=== PATIENT | female | born 1950 ===

== ENCOUNTER 2017-04-28 21:23 | Emergency (ER) | payer MEDICARE ==
--- NOTE | ~2017-04-28 | ER ---
PATIENT'S NAME: [facility]Y [facility] AGE: 66 Y [address] ROOM: [place] [id number] LOCATION: [facility] ADMIT DATE: 04/28/2017 ER/Outpatient Report DISCHARGE DATE: 04/28/2017 FAMILY PHYSICIAN: PHYSICIAN, NO ATTENDING PHYSICIAN: Praful Patel Time of Arrival: 2123 hours. Time of Evaluation: 2150 hours. CHIEF COMPLAINT: This is a 66-year-old female. She is previously healthy. She is visiting from out of town. She is in with complaint of a headache for the past 3 days. HISTORY OF PRESENT ILLNESS: She reports she has had a throbbing, diffuse headache on her forehead, behind both of her eyes, radiating to her right jaw, that began about 3 days ago. It improves with ibuprofen, but does not resolve and she states that she has been dizzy for the past 2 days. PAST MEDICAL HISTORY: Significant for hypertension. She states she has had previous similar episodes in the past although her headaches generally resolve with ibuprofen. CURRENT MEDICATIONS: See list. REVIEW OF SYSTEMS: She has been traveling. She is visiting in town for a yazdanism meeting. She denies any other recent illnesses. SOCIAL HISTORY: She is . She is a nonsmoker. She denies alcohol. PHYSICAL EXAMINATION: GENERAL: An alert, pleasant, and cooperative female, in no acute distress. VITAL SIGNS: Stable. SKIN: Warm and dry. Color is normal. HEAD, EARS, EYES, NOSE, AND THROAT: No nystagmus. Pupils are equal, round, and reactive to light. Extraocular movements intact. Ear, nose, throat are clear. She has mild occipital tenderness. NECK: Supple without adenopathy. HEART: Regular rate and rhythm without murmur. LUNGS: Clear. Breath sounds are equal. ABDOMEN: Soft. EXTREMITIES: Normal. PATIENT'S NAME: M[facility]ONY [facility] AGE: 66 Y [address] ROOM: [place], [place] [address] LOCATION: [facility] ADMIT DATE: 04/28/2017 ER/Outpatient Report DISCHARGE DATE: 04/28/2017 FAMILY PHYSICIAN: PHYSICIAN, NO ATTENDING PHYSICIAN: Praful Patel NEUROLOGIC EXAM: Normal. DISCUSSION: She is given Toradol 60 mg IM with marked improvement in her headache. Her blood pressure is slightly elevated on arrival that improved after headache resolved. ASSESSMENT: 1. Intractable tension headache. 2. Hypertension. PLAN: Follow up with her regular doctor as needed. PRAFUL PATEL MD JDB/modl /[id number] d: 04/29/17 0954 t: 05/02/17 0550, OUTPATIENT REPORT
== END 2017-04-28 22:39 | disposition disaster alternative care site (69) ==
LOC: GMED 21:23
DX: G44.201 Tension-type headache, unspecified, intractable (principal); I10 Essential (primary) hypertension; Z79.899 Other long term (current) drug therapy
CPT/HCPCS: J1885